=== PATIENT | female | born 1935 | race Caucasian/White ===

== ENCOUNTER 2016-06-09 15:45 | Emergency (ER) | payer MEDICARE, OTHER ==
[2016-06-09] MEDS ORDERED: OPTIRAY 350 100 ML VIAL HMH IV ONE (15:46)
[2016-06-09] MEDS ORDERED: MORPHINE 4 MG/ML SYR ONE ×2 (20:47→22:39)
[2016-06-09] MEDS ORDERED: ONDANSETRON 4 MG VIAL ONE ×2 (20:47→22:39)
[2016-06-09] MEDS ORDERED: SODIUM CHLORIDE 0.9% 1,000 ML ONE (22:26)
== END 2016-06-10 01:12 | disposition home or self-care (01) ==
LOC: ER 15:45
DX: J90 Pleural effusion, not elsewhere classified (principal); T81.4XXA Infection following a procedure, initial encounter
CPT/HCPCS: 36415; 71020; 71260; 80053; 81003; 85025; 85610; 85730; 96361; 96374; 96375; 96376; 99285; J2270; J2405; Q9967